=== PATIENT | male | born 1955 ===

== ENCOUNTER 2020-02-25 12:13 | Emergency (ER) | payer BC ==
[2020-02-25] MEDS ORDERED: Ondansetron 4 MG/2 ML SDV ONE (12:31)
[2020-02-25] MEDS ORDERED: fentaNYL 100 MCG/2 ML SDV ONE ×2 (12:31→12:49)
[2020-02-25] MEDS ORDERED: Sodium Chloride 0.9% 1,000 ML IV ONE ×2 (12:37)
[2020-02-25 12:48] LABS: CHLORIDE,CL 107 mmol/L (98-107); SODIUM,NA 142 mmol/L (136-145)
[2020-02-25] MEDS ORDERED: Iopamidol 755 Mg/ML 100 ML Bottle ONE (13:05)
--- NOTE | 2020-02-25 13:44 | EDM.PDOC ---
ED HPI GENERAL MEDICAL PROBLEM - General Chief Complaint: CPR in Progress Stated Complaint: CPR IN PROGRESS-ROSC Time Seen by Provider: 02/25/20 12:15 Source of Information: Reports: EMS, EMS Notes Reviewed - History of Present Illness INITIAL COMMENTS - FREE TEXT/NARRATIVE: Pt found down at [place] Per EMS EAD shock X 8 at scene and X 2 in ambulance Pt given Epi X 1 and Lido X 1 Rhythm noted per EMS Rate 110 Upon arrival to ER pt in sinus rhythm with rate 100 Pt able to breath on own Sats 94% on NRB Further hx unknown Onset: Today, Sudden - Related Data Allergies Allergy/AdvReac Type Severity Reaction Status Date / Time No Known Allergies Allergy Verified 02/25/20 13:32 ED ROS GENERAL - Review of Systems Review Of Systems: Unable To Obtain Reason Not Obtained: S/P cardiac arrest ED EXAM, CPR - Physical Exam Exam: See Below Limited By: Altered Mental Status General Appearance: Lethargic Eye Exam: Bilateral Eye: EOMI, PERRL Nose: Normal Inspection Throat/Mouth: Normal Oropharynx Respiratory Chest: Decreased Breath Sounds Cardiovascular: Tachycardia GI/Abdominal Exam: Distended Extremities: Pedal Edema Neurological: Confused, Disoriented, Slow to Respond Course - Orders/Labs/Meds Orders: Active Orders 24 hr Category Date Time Status Ang Chest [CT] Stat Exams 02/25/20 13:19 Taken Labs: Laboratory Tests 02/25/20 02/25/20 02/25/20 Range/Units 12:25 12:25 12:25 WBC 17.5 H (4.0-10.2) K/uL RBC 5.46 H (4.33-5.41) M/uL Hgb 15.8 (13.1-16.8) g/dL Hct 48.9 (39.0-49.0) % MCV 89.6 (84.0-98.0) fL MCH 28.9 (28.2-33.3) pg MCHC 32.3 (31.7-36.0) g/dL RDW 13.9 (11.2-14.1) % Plt Count 239 (150-350) K/uL Neut % (Auto) 58.3 (45.0-80.0) % Lymph % (Auto) 29.5 (10.0-50.0) % Monroe % (Auto) 9.1 (2.0-14.0) % Eos % (Auto) 2.7 (0.0-5.0) % Baso % (Auto) 0.4 (0.0-2.0) % Neut # (Auto) 10.19 H (1.40-7.00) K/uL Lymph # (Auto) 5.17 H (0.50-3.50) K/uL Monroe # (Auto) 1.60 H (0.00-1.00) K/uL Eos # (Auto) 0.47 (0.00-0.50) K/uL Baso # (Auto) 0.07 (0.00-0.20) K/uL APTT 23.4 L (24.5-32.8) SEC D-Dimer, Quantitative (0-400) ng/mL Sodium 142 (136-145) mmol/L Potassium 4.3 (3.5-5.1) mmol/L Chloride 107 (98-107) mmol/L Carbon Dioxide 14.8 L (21.0-32.0) mmol/L BUN 24 H (7-18) mg/dL Creatinine 0.96 (0.51-1.17) mg/dL Est Cr Clr Drug Dosing TNP Estimated GFR (MDRD) > 60 mL/min Glucose 264 H (74-106) mg/dL Calcium 9.1 (8.5-10.1) mg/dL Total Bilirubin 0.5 (0.2-1.0) mg/dL AST 131 H (15-37) U/L ALT 163 H (12-78) U/L Alkaline Phosphatase 85 (46-116) IU/L Troponin I 0.043 (0.000-0.056) ng/mL Total Protein 7.1 (6.4-8.2) g/dL Albumin 4.0 (3.4-5.0) g/dL Specimen Type Urine Color Urine Appearance Urine pH (5.0-9.0) Ur Specific Cody (1.005-1.030) Urine Protein (NEGATIVE) mg/dL Urine Glucose (UA) (NEGATIVE) mg/dL Urine Ketones (NEGATIVE) mg/dL Urine Occult Blood (NEGATIVE) Urine Nitrite (NEGATIVE) Urine Bilirubin (NEGATIVE) Urine Urobilinogen (0.2-1.0) E.U./dL Ur Leukocyte Esterase (NEGATIVE) U Hyaline Cast (Auto) Urine RBC /HPF Urine WBC /HPF Ur Epithelial Cells /LPF Amorphous Sediment (0/HPF) /HPF Urine Bacteria (NONE TO FEW) /HPF Urine Mucus (NEGATIVE) /LPF 02/25/20 02/25/20 Range/Units 12:25 12:55 WBC (4.0-10.2) K/uL RBC (4.33-5.41) M/uL Hgb (13.1-16.8) g/dL Hct (39.0-49.0) % MCV (84.0-98.0) fL MCH (28.2-33.3) pg MCHC (31.7-36.0) g/dL RDW (11.2-14.1) % Plt Count (150-350) K/uL Neut % (Auto) (45.0-80.0) % Lymph % (Auto) (10.0-50.0) % Monroe % (Auto) (2.0-14.0) % Eos % (Auto) (0.0-5.0) % Baso % (Auto) (0.0-2.0) % Neut # (Auto) (1.40-7.00) K/uL Lymph # (Auto) (0.50-3.50) K/uL Monroe # (Auto) (0.00-1.00) K/uL Eos # (Auto) (0.00-0.50) K/uL Baso # (Auto) (0.00-0.20) K/uL APTT (24.5-32.8) SEC D-Dimer, Quantitative > 5000 H (0-400) ng/mL Sodium (136-145) mmol/L Potassium (3.5-5.1) mmol/L Chloride (98-107) mmol/L Carbon Dioxide (21.0-32.0) mmol/L BUN (7-18) mg/dL Creatinine (0.51-1.17) mg/dL Est Cr Clr Drug Dosing Estimated GFR (MDRD) mL/min Glucose (74-106) mg/dL Calcium (8.5-10.1) mg/dL Total Bilirubin (0.2-1.0) mg/dL AST (15-37) U/L ALT (12-78) U/L Alkaline Phosphatase (46-116) IU/L Troponin I (0.000-0.056) ng/mL Total Protein (6.4-8.2) g/dL Albumin (3.4-5.0) g/dL Specimen Type Urincath Urine Color Yellow Urine Appearance Slightly cloudy Urine pH 5.5 (5.0-9.0) Ur Specific Cody >= 1.030 (1.005-1.030) Urine Protein >=300 H (NEGATIVE) mg/dL Urine Glucose (UA) 500 H (NEGATIVE) mg/dL Urine Ketones Negative (NEGATIVE) mg/dL Urine Occult Blood Moderate H (NEGATIVE) Urine Nitrite Negative (NEGATIVE) Urine Bilirubin Negative (NEGATIVE) Urine Urobilinogen 0.2 (0.2-1.0) E.U./dL Ur Leukocyte Esterase Negative (NEGATIVE) U Hyaline Cast (Auto) Rare Urine RBC 10-20 H /HPF Urine WBC 0-5 /HPF Ur Epithelial Cells Few /LPF Amorphous Sediment Few (0/HPF) /HPF Urine Bacteria Few (NONE TO FEW) /HPF Urine Mucus Few H (NEGATIVE) /LPF Meds: Medications Discontinued Medications Generic Name Dose Route Start Last Admin Trade Name Freq PRN Reason Stop Dose Admin Fentanyl Confirm 02/25/20 12:49 Sublimaze Administered 02/25/20 12:50 Dose 100 mcg .ROUTE .STK-MED ONE Iopamidol Confirm 02/25/20 13:05 02/25/20 13:10 Isovue-370 (76%) Administered 02/25/20 13:06 100 ml Dose Administration 100 ml .ROUTE .STK-MED ONE - Re-Assessments/Exams Free Text/Narrative Re-Assessment/Exam: 02/25/20 13:41 Pt s/p CPR Now awake but confused BP 115/63 HR 85 See lab EKG with lateral changes No STEMI D/W [facility] One-call Dr Serna Cardiology, Dr Holm Interventional cardiology, Dr Jones ICU Dr Clarke On-call hospitalist Will accept Transfer via [facility] CTA done prior to transfer No PE per Dr Jones Pt remains hemodynamically stable IVF's at TKO No pressors Pt given Zofran 8 mg IV and Fentanyl 50 mgm IV in ER Departure - Departure Time of Disposition: 13:45 Disposition: DC/Tfer to Acute Hospital 02 Clinical Impression: Cardiac arrest - Discharge Information *PRESCRIPTION DRUG MONITORING PROGRAM REVIEWED*: Not Applicable *COPY OF PRESCRIPTION DRUG MONITORING REPORT IN PATIENT LINDA: Not Applicable Referrals: PCP,None [Primary Care Provider] - - My Orders Last 24 Hours: My Active Orders 02/25/20 13:19 Ang Chest [CT] Stat - Assessment/Plan Last 24 Hours: My Active Orders 02/25/20 13:19 Ang Chest [CT] Stat
== END 2020-02-25 13:30 ==
LOC: EDBD → LL.ED 12:13
DX: I46.9 Cardiac arrest, cause unspecified (principal); R41.82 Altered mental status, unspecified
CPT/HCPCS: 36415; 51702; 71275; 80053; 81001; 84484; 85025; 85379; 85730; 96374; 96375; 99284; 99285-25; J2405; J3010; J7030; Q9967